=== PATIENT | male | born 1960 | race Caucasian/White ===

== ENCOUNTER 2021-06-23 08:32 | Outpatient (CLI) | payer MEDICARE, SELFPAY ==
--- NOTE | ~2021-06-23 | US_ITS ---
EXAMINATION: US aorta DATE: 06/23/2021 09:38 INDICATION: Abdominal aortic ectasia TECHNIQUE: Grayscale, color Doppler, and pulsed Doppler images of the aorta and common iliac arteries were obtained. COMPARISON: CT dated 02/04/2018 FINDINGS: The proximal aorta measures 2.9 cm. The mid aorta measures 2.0 cm. Fusiform ectasia of the distal abd ominal aorta measuring up to 2.8 cm in maximal diameter. The right common iliac artery measures 1.1 c m. The left common iliac artery measures 1.1 cm. IMPRESSION: 1. Fusiform ectasia of the infrarenal abdominal aortic measuring up to 2.8 cm in maximal diameter. Reviewed, dictated and finalized at location A. IMPRESSION: 1. Fusiform ectasia of the infrarenal abdominal aortic measuring up to 2.8 cm i n maximal diameter.
== END 2021-06-23 08:33 | disposition home or self-care (01) ==
PROVIDERS: PCP Emergency Medicine; Visit Provider Internal Medicine Cardiovascular Disease
DX: I77.811 Abdominal aortic ectasia (principal)
CPT/HCPCS: 76775

== ENCOUNTER → 2021-08-11 09:50 | Outpatient (CLI) | payer MEDICARE, SELFPAY ==
--- NOTE | ~2021-08-11 | MR_ITS ---
EXAMINATION: MR shoulder LT wo con DATE: 08/11/2021 10:35 INDICATION: Left shoulder pain. TECHNIQUE: Magnetic resonance imaging (MRI) of the left shoulder was performed without intravenous co ntrast. Sequences included axial PD-weighted FS FSE, coronal oblique PD-weighted FS FSE and T2-weight ed FS FSE, and sagittal oblique T2-weighted FS FSE and T1-weighted FSE. COMPARISON: Left shoulder radiographs 07/25/2021 FINDINGS: Coracoacromial arch: The acromion undersurface is curved in morphology (type II). There is moderate acromioclavicular join t osteoarthritis including inferiorly directed osteophytes. There is moderate subacromial/subdeltoid bursitis. Rotator cuff: There is a nondisplaced avulsion fracture of greater tuberosity with low signal fracture line and patricia rounding edema. There is moderate supraspinatus and infraspinatus tendinopathy with a bursal-sided pa rtial-thickness tear measuring 9 mm anterior to posterior by 12 mm proximal to distal by less than 20 % tendon thickness. Teres minor tendon is normal. There is mild subscapularis tendinopathy. There is no asymmetric fatty atrophy of the rotator cuff muscle bellies. Biceps tendon and glenoid labrum: Biceps tendon is in bicipital groove. There is mild intra-articular biceps tendinopathy. There is deg enerative tearing of the superior and posterior labrum. Fluid: There is a small glenohumeral joint effusion. Bones/cartilage: There is shallow partial-thickness cartilage loss of humeral head and glenoid. IMPRESSION: 1. Nondisplaced fracture of greater tuberosity of proximal left humerus. 2. Moderate rotator cuff tendinopathy with shallow bursal-sided tear of supraspinatus and infraspinat us tendons. 3. Moderate acromioclavicular joint osteoarthritis. 4. Mild intra-articular biceps tendinopathy. 5. Mild glenohumeral joint chondrosis. Reviewed, dictated and finalized at location A. IMPRESSION: 1. Nondisplaced fracture of greater tuberosity of proximal left humerus. 2. Moderate rotator cuff tendinopathy with shallow bursal-sided tear of suprasp inatus and infraspinatus tendons. 3. Moderate acromioclavicular joint osteoarthritis. 4. Mild intra-articular biceps tendinopathy. 5. Mild glenohumeral joint chondrosis.
== END ==
PROVIDERS: PCP Emergency Medicine; Visit Provider Orthopaedic Surgery
DX: M25.512 Pain in left shoulder (principal); S42.255A Nondisplaced fracture of greater tuberosity of left humerus, initial encounter for closed fracture; S46.812A Strain of other muscles, fascia and tendons at shoulder and upper arm level, left arm, initial encounter; M19.012 Primary osteoarthritis, left shoulder; M75.22 Bicipital tendinitis, left shoulder; M94.8X2 Other specified disorders of cartilage, upper arm
CPT/HCPCS: 73221

== ENCOUNTER 2021-11-04 13:30 | Outpatient (RCR) | payer MEDICARE, SELFPAY ==
[2021-10-07 09:59] VITALS: BP_SYST 120; BP_SYST 55
--- NOTE | 2021-10-07 11:56 | PTOPEVAL ---
PHYSICAL THERAPY INITIAL EVALUATION. Thank you for referring Singh Broussard to [facility].? The patient is scheduled to be seen for therapy? 1x/week for 4 weeks. Please review, sign, date and return this plan of care NELI. I agree with and certify that the following plan of care is medically necessary. Referring Physician Date Attending Provider: Raciel Senior MD *PT Outpatient Evaluation Start: 10/07/21 Evaluation Information Diagnosis Rohit shoulder pain Onset 02/22 Additional Evaluation Detail Pt arrived 15 mins late for initial evaluation this date. Subjective Information Pt states he does not have Query Text:As Reported By Patient/ much function of his L arm at [facility]. Per his MRI he has a non- displaced fracture of the greater tuberosity and moderate TRC tendinopathy. When he tries to use his R arm he gets pain in his R arm and shoulder blade region, he states when he uses his R arm it states to go numb. He also reports when he looks down he gets an electrical shock in between his shoulder blades. Prior Level of Function Occupation on disability Hand Dominance Right Pain Assessment Right Shoulder(s) Reported Pain Level 3 Pain Description Numbness,Sharp Pain Frequency Acute,Intermittent Lowest Pain Intensity 3 Greatest Pain Intensity 5 Pain Aggravating Factors Exercise/Activity,Lifting, Weight Bearing/Standing Left Shoulder(s) Reported Pain Level 4 Pain Description Sharp Pain Frequency Acute,Intermittent Lowest Pain Intensity 4 Greatest Pain Intensity 8 Pain Aggravating Factors Exercise/Activity Upper Extremity Range of Motion Gross Upper Extremity Range of Motion Rohit wrist and elbow motion WFL Scapular/ Shoulder Range of Motion Right Shoulder Flexion - Active 122 Shoulder Flexion - Passive 140 Shoulder Abduction - Active 116 Shoulder Abduction - Passive 120 Shoulder Medial Rotation - Passive 64 Shoulder Medial Rotation - Active T12 Shoulder Lateral Rotation - Passive 80 Shoulder Lateral Rotation - Active T2 Scapular/Shoulder Range of Motion rotation measures in 90 deg of Comments abduction Left Shoulder Flexion - Active 64 Shoulder Flexion - Passive 64 Shoulder Abduction - Active 44 Shoulder Abdu
[2021-11-04 13:34] VITALS: BP_SYST 106; BP_SYST 145
--- NOTE | 2021-11-04 14:18 | PTOPDC ---
Evaluation Information Assessment Status Progress Diagnosis dannie shoulder pain Onset 02/22 Subjective Information Pt states since he received his injection it has really helped his shoulder. He states both pain and ROM have improved. He states his L shoulder only hurts when reaching very far over his head. He states his R shoulder still hurts when it clicks or catches as well as numbness in his hand. He also reports continued numbness in his R hand. Pt reports 75% in his overall improvement but states this is due to the injection. Reported Pain Level Pain Score 0,3: Self Report Assessment PT Clinical Summary Singh presents to therapy today for his progress report following 3 visits of skilled therapy to treat his dannie shoulder pain. Today he reports well managed pain however demonstrates obvious pain behaviors during testing. He demonstrates active flexion ~115 dannie, this is limited by pain. He demonstrate dannie shoulder strength grossly 3+/5 to 4/5 which is also limited by obvious pain. Throughout active motions, pt will rotate his trunk and let his arm drop to avoid pain. Overall he demonstrates poor functional strength and motion. Pt was educated on the benefits of continuation of skilled therapy. Despite this, pt would like to be discharged from skilled therapy services at time. Plan of Care PT Services Indicated Yes Treatment Frequency and to be discharged per request Duration
== END 2021-12-01 08:24 | disposition home or self-care (01) ==
LOC: ANHGOSHPT 13:30
PROVIDERS: PCP Emergency Medicine; Visit Provider Orthopaedic Surgery
DX: M25.511 Pain in right shoulder (principal); M25.512 Pain in left shoulder; S42.252A Displaced fracture of greater tuberosity of left humerus, initial encounter for closed fracture
CPT/HCPCS: 97110; 97112; 97140; 97161